=== PATIENT | female | born 1980 | race American Indian/Alaskan Native ===

== ENCOUNTER 2016-12-25 12:16 | Inpatient (IN) | payer OTHER ==
[2016-12-25] MEDS ORDERED: POLYCILLIN/NS 2 GM/100 ML 2 GM/100 ML BAG IV ONE (13:25)
[2016-12-25] MEDS ORDERED: LACTATED RINGERS 1,000 ML IV SCH ×2 (14:00→15:00)
--- NOTE | 2016-12-25 14:12 | History and Physical Report ---
History of Present Illness Date of examination: 12/25/16 Date of admission: 12/25/16 12:17 Chief complaint: Ruptured membranes at term History of present illness: 36-year-old 002 at 39+3 wks presents with ruptured membranes, she is a [facility] patient. Patient speaks Georgian only, she is GBS positive. course has been unremarkable Past History Past Medical History: no pertinent history Past Surgical History: no surgical history Family/Genetic History: denies: heart disease, hypertension, stroke Social history: , full code. denies: smoking, alcohol abuse, prescription drug abuse, IV drug use - Obstetrical History Expected Date of Delivery: 12/29/16 Actual Gestation: 39 Week(s) 3 Day(s) : 3 Para: 2 Medications and Allergies Allergies Allergy/AdvReac Type Severity Reaction Status Date / Time No Known Allergies Allergy Unverified 12/25/16 12:40 Active Meds: Active Medications Ampicillin Sodium (Polycillin/Ns 2 Gm/100 Ml) 2 gm in 100 mls @ 100 mls/hr IV ONCE ONE PRN Reason: Protocol Stop: 12/25/16 14:24 Ampicillin Sodium (Polycillin/Ns 1 Gm/50 Ml) 1 gm in 50 mls @ 100 mls/hr IV Q4HR ABHISHEK PRN Reason: Protocol Lactated Ringer's (Lactated Ringers) 1,000 mls @ 125 mls/hr IV DIRECT [facility] Review of Systems Constitutional: no fever, no chills, no sweats, no weakness Cardiovascular: no chest pain, no orthopnea, no syncope, no lightheadedness, no shortness of breath, no dyspnea on exertion, no high blood pressure Respiratory: no cough, no shortness of breath, no dyspnea on exertion Gastrointestinal: no abdominal pain, no nausea, no vomiting, no coffee ground emesis Genitourinary: leakage of fluid, contractions, no vaginal bleeding, no vaginal discharge - Vital Signs Vital signs: Vital Signs Temp Resp 98.2 F 18 12/25/16 12:46 12/25/16 12:46 Temp Pulse Resp BP Pulse Ox 97.5 F L 98 H 14 111/74 99 12/25/16 13:59 12/25/16 13:59 12/25/16 13:59 12/25/16 13:59 12/25/16 13:59 - Physical Exam Cardiovascular: Regular rate, Normal S1, Normal S2 Lungs: Positive: Clear to auscultation, Normal air movement Abdomen: Positive: normal appearance, soft. Negative: distention, tenderness, guarding, rigidity Genitourinary (Female): Positive: normal external genitalia Uterus: Positive: enlarged (EFW ~ 3800) Adnexa: both: normal - Obstetrical FHR: category 1 Cervical Dilatation: 4.5 station: - 2 Results All other labs normal. Assessment and Plan A: 36-year-old 002 at 39+3 weeks in active labor with ruptured membranes -Category 1 tracing P: -Admit -Routine labs -Epidural prn -Anticipate normal vaginal delivery - Patient Problems (1) 39 weeks gestation of Current Visit: Yes Status: Acute (2) Rupture of membranes with clear amniotic fluid Current Visit: Yes Status: Acute
[2016-12-25] MEDS ORDERED: BRETHINE IVP PRN (14:15)
[2016-12-25] MEDS ORDERED: XYLOCAINE 2% INFILTRATI ONE ×2 (14:15→17:23)
[2016-12-25] MEDS ORDERED: SUBLIMAZE IV PRN (14:15)
[2016-12-25] MEDS ORDERED: BRETHINE SUB-Q PRN (14:15)
[2016-12-25] MEDS ORDERED: ePHEDrine SULFATE IV PRN (14:15)
[2016-12-25] MEDS ORDERED: PITOCin/NS 20 UNIT/1000ML DRIP 20 UNITS/1,000 ML BAG IV SCH (15:00)
[2016-12-25] MEDS ORDERED: PITOCin/NS 30 UNIT/500ML 30 UNITS/500 ML BAG IV SCH (15:00)
[2016-12-25 15:13] LABS: Basophils % (Auto) 0.5 % (0.0-1.8); Eosinophils % (Auto) 1.9 % (0.0-4.3); Hematocrit 36.8 % (30.3-42.9); Hemoglobin 12.5 gm/dl (10.1-14.3); Mean Corpuscular HGB Conc 34 % (30-34); Mean Corpuscular Hemoglobin 32 pg (28-32); Mean Corpuscular Volume 94 fl (79-97); Platelet Count 198 K/mm3 (140-440); Red Cell Distribution Width 13.4 % (13.2-15.2); White Blood Count 10.8 K/mm3 (4.5-11.0)
[2016-12-25] MEDS: PITOCin/NS 30 UNIT/500ML 30 UNITS/500 ML BAG IV SCH ×2 (15:35→16:09)
--- NOTE | 2016-12-25 17:34 | Procedure Note ---
OB Delivery Note - Delivery Date of Delivery: 12/25/16 Surgeon: PABLO CABALLERO Estimated blood loss: 200cc - Vaginal Delivery presentation: vertex Delivery position: OA Intrapartum events: PROM->1hr before delivery Delivery induction: none Delivery augmentation: pitocin Delivery monitor: external FHT, external uterine Route of delivery: Delivery placenta: spontaneous Delivery cord: nuchal cord, 3 umbilical vessels Episiotomy: none Delivery laceration: 1st degree Anesthesia: none - Infant A at 1 minute: 8 at 5 minutes: 8 Infant Gender: Male (Del @ 17:18, weight is 7#8 or 3400 g)
[2016-12-25] MEDS ORDERED: BENADRYL PO PRN (17:38)
[2016-12-25] MEDS ORDERED: PHENERGAN PO PRN (17:38)
[2016-12-25] MEDS ORDERED: PHENERGAN PR PRN (17:38)
[2016-12-25] MEDS ORDERED: NORCO 5/325 PO PRN (17:38)
[2016-12-25] MEDS ORDERED: TYLENOL PO PRN (17:38)
[2016-12-25] MEDS ORDERED: LANSINOH TP PRN (17:38)
[2016-12-25] MEDS ORDERED: ZOFRAN IV PRN (17:38)
[2016-12-25] MEDS ORDERED: DULCOLAX PR PRN (17:38)
[2016-12-25] MEDS ORDERED: TUCKS PAD TP PRN (17:38)
[2016-12-25] MEDS ORDERED: MILK OF MAGNESIA PO PRN (17:38)
[2016-12-25] MEDS ORDERED: POLYCILLIN/NS 1 GM/50 ML 1 GM/50 ML BAG IV SCH ×2 (18:00→18:16)
[2016-12-25] MEDS ORDERED: SENOKOT S PO SCH (18:00)
[2016-12-25] MEDS ORDERED: SODIUM CHLORIDE FLUSH SYRINGE 10 ML IV NR (18:00)
[2016-12-25] MEDS: MOTRIN PO SCH ×2 (18:10→23:35)
[2016-12-25] MEDS: COLACE PO SCH (21:10)
[2016-12-25] MEDS: FEOSOL PO SCH (21:10)
[2016-12-25] MEDS ORDERED: MINERAL OIL PO PRN (22:00)
[2016-12-26] MEDS: MOTRIN PO SCH ×3 (05:36→23:02)
--- NOTE | 2016-12-26 06:22 | Progress Note ---
Assessment and Plan PPD# 1 s/p -Doing well P: -Await a.m. labs -Routine care -Anticipate discharge in 24-48 hours - Patient Problems (1) (normal spontaneous vaginal delivery) Current Visit: Yes Status: Acute (2) 39 weeks gestation of Current Visit: Yes Status: Acute (3) Rupture of membranes with clear amniotic fluid Current Visit: Yes Status: Acute Subjective - Subjective Date of service: 12/26/16 Principal diagnosis: PPD#2 Interval history: Patient seen and examined, stable doing well. Has no new issues or complaints, speaks better Bel[place]ian than previously seen. Patient reports: appetite normal, voiding normally, pain well controlled, flatus , ambulating normally, no dizzy ambulation, no nauseated : doing well Objective - Vital Signs Latest vital signs: Vital Signs Temp Pulse Resp BP BP Pulse Ox 12/26/16 04:30 98.4 F 86 18 101/62 12/26/16 00:00 98.0 F 79 18 105/64 12/25/16 19:10 97.6 F 74 20 111/74 12/25/16 18:48 77 118/72 12/25/16 18:33 83 114/69 12/25/16 18:18 81 114/67 12/25/16 18:10 18 12/25/16 18:03 88 117/75 12/25/16 16:58 93 H 97 12/25/16 16:53 97 H 99 12/25/16 16:48 91 H 99 12/25/16 16:43 93 H 97 12/25/16 16:38 98 H 98 12/25/16 16:33 99 H 96 12/25/16 16:28 87 96 12/25/16 16:23 85 99 12/25/16 16:18 91 H 98 12/25/16 16:13 93 H 109/69 98 12/25/16 16:08 83 97 12/25/16 16:03 89 97 12/25/16 15:58 83 97 12/25/16 15:53 81 97 12/25/16 15:48 84 97 12/25/16 15:43 95 H 98 12/25/16 15:38 87 98 12/25/16 15:33 92 H 97 12/25/16 15:28 101 H 98 12/25/16 15:23 86 98 12/25/16 15:18 95 H 98 12/25/16 13:59 97.5 F L 98 H 14 111/74 99 12/25/16 13:19 96 H 103/76 12/25/16 12:49 112 H 112/67 12/25/16 12:46 98.2 F 18 Intake and Output 12/25/16 12/25/16 12/26/16 15:59 23:59 07:59 Intake Total 2.267 120 Output Total 300 700 Balance -297.733 -580 Intake: IV 2.267 PITOCin/NS 30 UNIT/500ML 2.267 30 units In 500 ml @ 4 mls/hr IV TITR ABHISHEK Rx#: [id number] Oral 120 Output: Urine 300 700 Void 300 700 Other: Total, Intake Amount 120 Total, Output Amount 300 100 Weight 77.564 kg Estimated Blood Loss 200 - Exam Abdomen: Present: normal appearance, soft. Absent: distention, tenderness, guarding, rigidity Uterus: Present: firm, fundal height below umbilicus Extremities: Present: normal - Labs Labs: Abnormal lab results 12/25/16 Range/Units 15:00 [place] % (Auto) 11.7 H (0.0-7.3) % [place]ades # 1.3 H (0.0-0.8) K/mm3
--- NOTE | 2016-12-26 06:24 | Discharge Summary ---
Providers - Providers Date of Admission: 12/25/16 12:17 Date of discharge: 12/27/16 Attending physician: PABLO CABALLERO Primary care physician: PABLO CABALLERO Hospitalization Reason for admission: active labor, IUP at term Delivery: Episiotomy: none Laceration: 1st degree (not repaired) Incision: dry, intact Other procedures: none complications: none Discharge diagnosis: IUP at term delivered [place] baby: male Hospital course: Uncomplicated course Condition at discharge: Good Disposition: DC-01 TO HOME OR SELFCARE - Discharge Diagnoses (1) (normal spontaneous vaginal delivery) Status: Acute (2) 39 weeks gestation of Status: Acute (3) Rupture of membranes with clear amniotic fluid Status: Acute Plan - Discharge Medications Prescriptions: Ibuprofen [Motrin 600 MG tab] 600 mg PO Q8H PRN #30 tablet PRN Reason: Pain Multivitamin with Iron [Multivitamins with Iron] 1 each PO DAILY #30 tablet - Provider Discharge Summary Activity: no sex for 6 weeks, no heavy lifting 4 weeks, no strenuous exercise Diet: routine Additional instructions: [] Smoking cessation referral if applicable(refer to patient education folder for contact #) [] Refer to [facility]'s [facility] Booklet Call your doctor immediately for: * Fever > 100.5 * Heavy vaginal bleeding ( >1 pad per hour) * Severe persistent headache * Shortness of breath * Reddened, hot, painful area to leg or breast * Drainage or odor from incision. * Keep incision clean and dry at all times and follow doctor's instructions regarding bathing/showering - Follow up plan Follow up: PABLO CABALLERO MD [Primary Care Provider] - 6 Weeks
[2016-12-26 06:34] LABS: Hematocrit 34.3 % (30.3-42.9); Hemoglobin 11.9 gm/dl (10.1-14.3)
[2016-12-26] MEDS: PRENATAL VITAMIN PO SCH (10:16)
[2016-12-26] MEDS: FEOSOL PO SCH ×2 (10:16→23:02)
[2016-12-26] MEDS: COLACE PO SCH ×2 (10:17→23:02)
[2016-12-26] MEDS ORDERED: BOOSTRIX IM ONE (17:38)
[2016-12-26] MEDS ORDERED: M-M-R II VACCINE SUB-Q ONE (17:38)
[2016-12-27] MEDS: MOTRIN PO SCH ×3 (05:36→18:15)
[2016-12-27] MEDS: PRENATAL VITAMIN PO SCH (12:58)
[2016-12-27] MEDS: COLACE PO SCH (12:59)
[2016-12-27] MEDS: FEOSOL PO SCH (12:59)
[2016-12-27] MEDS ORDERED: Fluarix Quad 2017-2018(36 MOS+) IM ONE (19:30)
[2016-12-27 19:45] VITALS: BP 101/67
== END 2016-12-27 23:53 | disposition home or self-care (01) | DRG 775 ==
LOC: TRG 12:16 → LD 12:17 → TRG 12:17 → OB 19:34
PROVIDERS: ADMIT Obstetrics & Gynecology Gynecology; ATTEND Obstetrics & Gynecology Gynecology
PROC: 10E0XZZ Delivery of Products of Conception, External Approach (ICD-10-PCS; principal; 2016-12-25)
PROC: 3E0234Z Introduction of Serum, Toxoid and Vaccine into Muscle, Percutaneous Approach (ICD-10-PCS; 2016-12-27)
DX: O99.824 Streptococcus B carrier state complicating childbirth (principal); O70.0 First degree perineal laceration during delivery; O75.5 Delayed delivery after artificial rupture of membranes; O42.02 Full-term premature rupture of membranes, onset of labor within 24 hours of rupture; O69.81X0 Labor and delivery complicated by cord around neck, without compression, not applicable or unspecified; Z37.0 Single live birth; Z3A.39 39 weeks gestation of pregnancy; Z23 Encounter for immunization
CPT/HCPCS: 36415; 85014; 85018; 85025; 86592; 86850; 86900; 86901; 90471; 90686; 99211; G0008; G0463; J0290; J2590; J7120

== ENCOUNTER 2020-09-22 15:40 | Outpatient (CLI) | payer BC ==
--- NOTE | 2020-09-23 07:52 | Mammography Report ---
BILATERAL DIGITAL SCREENING MAMMOGRAM WITH CAD WITH TOMOSYNTHESIS HISTORY: Screening mammogram. TECHNIQUE: Routine digital mammographic imaging performed. This examination was interpreted with abimael villavicencio benefit of Computer-aided Detection analysis. Tomosynthesis images were acquired and reviewed. COMPARISON: None available. This is a baseline exam. FINDINGS: Breast Density: scattered fibroglandular appearance of the breast tissue. Digital CC and MLO views demonstrate an asymmetry seen on the cc view only within the lateral posteri or right breast. No suspicious findings within the left breast. IMPRESSION: Right medial posterior breast asymmetry for which additional mammographic views (spot CC, rolled CCs, full ML) are recommended for further evaluation with possible subsequent targeted ultrasound. BIRADS 0-Incomplete: Needs additional imaging evaluation NOTE: WE WILL RECALL THE PATIENT FOR THIS ADDITIONAL EVALUATION. FURTHER INFORMATION: According to the [employer], yearly mammograms are recommend ed starting at age 40 and continuing as long as a woman is in good health. Clinical Breast Exams shou ld be part of a periodic health exam-about every 3 years for women in their 20s and 30s and every yea r for women 40 and over. Breast self exam is an option for women starting in their 20s. Any breast ch jayme noted on a breast self exam should be reported promptly to the patient's healthcare provider. Br east MRI is recommended for women with an approximately 20-25% or greater lifetime risk of breast can cer, including women with a strong family history of breast or ovarian cancer and women who have been treated for Hodgkin's disease. A negative Mammography report should not discourage follow up or biopsy of a clinically significant f inding and/or abnormality. Dense breast tissue may obscure small neoplasms. The patient will be entered into a reminder system with a target due date for the next screening mamm ogram. Signer Name: Kraig Moore MD Signed: 09/23/2020 7:47 AM Workstation Name: [id number]
== END 2020-09-22 15:41 | disposition home or self-care (01) ==
LOC: SPVWC 15:40
PROVIDERS: ATTEND Advanced Practice Midwife
DX: Z12.31 Encounter for screening mammogram for malignant neoplasm of breast (principal); N64.89 Other specified disorders of breast
CPT/HCPCS: 77063; 77067